=== PATIENT | female | born 1975 | race Caucasian/White ===

== ENCOUNTER 2017-02-10 14:26 | Inpatient (IN) ==
[2017-02-10] MEDS ORDERED: Ipratropium/Albuterol Neb 3 ML IH ONE (14:29)
[2017-02-10] MEDS ORDERED: methylPREDNISolone 125 MG/2 ML VIAL IVP ONE (14:29)
--- NOTE | 2017-02-10 14:32 | Emergency Department Note ---
Disposition Clinical Impression: Acute exacerbation of chronic obstructive airways disease Disposition: Admitted As Inpatient Condition: Fair Referrals: Julia Atkins BOOK REPAIRER [Primary Care Provider] - Forms: ED Satisfaction Letter Time of Disposition: 16:02 SOB HPI - General Chief Complaint: ED Shortness of Breath/Dyspnea Stated Complaint: freida Time Seen by Provider: 02/10/17 14:28 Source: patient Mode of arrival: ambulatory Limitations: no limitations Nursing Notes Reviewed: Yes Vital Signs Reviewed: Yes - History of Present Illness Order 1-year-old with a history COPD comes in with exacerbation of her COPD. Says she hasn't been doing well for the last 2 months and stated that her breathing is gotten worse over the last several days. Squad picked her up at home and transported her her power of tax attorney is on her way in. Pt Subjective Complaint: shortness of breath, cough Onset (ago): Just [employer] Context: recent illness Severity: moderate Consistency/Duration: constant Improves with: nothing Worsens with: exertion Known history of: COPD Associated symptoms: Reports: cough Treatment prior to arrival: none Cough Description: Involuntary Cough Frequency: Intermittent - Related Data Home Medications Medication Instructions Recorded Confirmed Amitriptyline [Elavil] 25 mg PO HS 02/10/17 02/10/17 Aspirin 81 mg PO DAILY 02/10/17 02/10/17 Citalopram Hydrobromide 10 mg PO DAILY 02/10/17 02/10/17 [Citalopram HBr] Fluticasone Propionate Nasal 50 mcg NS DAILY 02/10/17 02/10/17 [Flonase] Meloxicam [Mobic] 7.5 mg PO DAILY 02/10/17 02/10/17 Metoprolol [Lopressor] 50 mg PO DAILY 02/10/17 02/10/17 Quetiapine Fumarate [SEROquel] 100 mg PO HS 02/10/17 02/10/17 Simvastatin [Zocor] 40 mg PO HS 02/10/17 02/10/17 Terbutaline [Brethine] 2.5 mg PO DAILY 02/10/17 02/10/17 Tiotropium [place] [Spiriva 2 puff IH DAILY 02/10/17 02/10/17 Respimat] cloNIDine HCl [Clonidine HCl] 0.3 mg PO DAILY 02/10/17 02/10/17 clonazePAM [Klonopin] 1 mg PO DAILY 02/10/17 02/10/17 Allergies Allergy/AdvReac Type Severity Reaction Status Date / Time No Known Allergies Allergy Verified 06/01/16 17:24 All systems ED: reviewed and negative except as stated. Constitutional: Denies: fever, chills, weakness, weight change Eyes: Denies: eye pain, eye discharge, vision change ENT ED: Denies: ear pain, throat pain, dental pain, hearing loss, epistaxis, congestion, dysphagia Cardiovascular: Denies: chest pain, palpitations, dyspnea on exertion, edema, syncope Respiratory: Reports: cough, dyspnea, wheezes. Denies: hemoptysis, stridor Gastrointestinal: Denies: abdominal pain, nausea, vomiting, diarrhea, constipation, hematemesis, melena, hematochezia Genitourinary: Denies: dysuria, frequency, hematuria, discharge Musculoskeletal: Denies: back pain, neck pain, arthralgia, myalgia Integumentary: Denies: rash, abrasion, lesions Neurological: Denies: headache, weakness, numbness, paresthesias, confusion, abnormal gait, vertigo Psychiatric: Denies: anxiety, depression, suicidal thoughts, homicidal thoughts , auditory hallucinations, visual hallucinations Endocrine: Denies: fatigue Hematological/Lymphatic: Denies: easy bleeding, easy bruising Allergic/Immunologic: Denies: facial swelling, urticaria Past Medical History - Past Medical History Medical history: Reports: asthma, COPD, hypertension, other Psychiatric history: Reports: anxiety - Social History Smoking Status: Current every day smoker Smokeless Tobacco Status: No Alcohol use: Reports: none Drug use: Reports: none Physical Exam - General Limitations: no limitations General appearance: alert, in no apparent distress - Head Head exam: atraumatic, normocephalic, normal inspection - Eye Eye exam: Present: normal appearance, PERRL, EOMI - ENT ENT exam: normal exam, normal oropharynx, mucous membranes moist - Neck Neck exam: Present: normal inspection, full ROM, trachea midline - Chest Chest inspection: Present: normal inspection, symmetric chest wall rise - Respiratory Respiratory exam: Present: wheezes, accessory muscle use, prolonged expiratory phase - Cardiovascular Cardiovascular exam: Present: regular rate, normal rhythm, normal heart sounds - Abdominal Exam Abdominal exam: Present: soft, Non-Tender. Absent: tenderness, distention, guarding, rebound, rigidity - Extremities Exam Extremities exam: Present: normal inspection, full ROM. Absent: tenderness, pedal edema - Expanded Lower Extremity Exam Neurovascular/Tendon exam: Absent: motor deficit, sensory deficit, tendon deficit Gait: observed and normal - Back Exam Back exam: Present: normal inspection - Neurological Exam Neurological exam: Present: alert, oriented X3 - Psychiatric Psychiatric exam: Present: normal affect, normal mood - Skin Skin exam: Present: warm, dry, intact, normal color Course - Reevaluation(s) Reevaluation #1: 41-year-old history COPD comes in with increasing shortness of breath and wheezing. Chest x-ray shows findings consistent with chronic interstitial lung changes. Possibility of vascular congestion although the BNP is negative. Time: 16:02 - Consultations Consultation #1: Discussed with , sunny. Time: 16:37 Vital Signs Temperature 99.7 F H 02/10/17 14:28 Pulse Rate 112 02/10/17 14:28 Respiratory Rate 20 02/10/17 14:28 Blood Pressure 107/84 02/10/17 14:28 O2 Sat by Pulse Oximetry 92 02/10/17 14:28 Temperature 99.7 F H 02/10/17 14:28 Pulse Rate 112 02/10/17 14:28 Respiratory Rate 22 02/10/17 14:38 Blood Pressure 107/84 02/10/17 14:28 O2 Sat by Pulse Oximetry 94 02/10/17 14:38 Oxygen Delivery Oxygen Delivery Nasal Cannula Shortness of Breath/Dyspnea - Lab Data Lab results reviewed: Yes I reviewed the patient's lab results. Result diagrams: 02/10/17 14:48 02/10/17 14:48 Lab Results 02/10/17 02/10/17 02/10/17 Range/Units 14:48 14:48 14:48 WBC 13.4 H (4.3-11.1) K/mcL RBC 4.42 (3.82-4.97) M/mcL Hgb 13.3 (11.5-15.4) g/dL Hct 42.0 (35.3-44.9) % MCV 95.0 (83.0-100.0) fL MCH 30.1 (28.0-33.3) pg MCHC 31.7 (31.6-35.5) g/dL RDW 13.1 (11.5-14.5) % Plt Count 156 (140-400) K/mcL MPV 12.0 (9.4-12.4) fL Immature Gran % 0.4 (0-4) % Seg Neutrophils % 80.6 % Lymphocytes % 11.5 % Monocytes % 5.4 % Eosinophils % 1.8 % Basophils % 0.3 % Neutrophils # 10.8 H (1.6-8.9) K/mcL Lymphocytes # 1.5 (0.6-4.6) K/mcL Monocytes # 0.7 (0.0-1.3) K/mcL Eosinophils # 0.2 (0.0-0.6) K/mcL Basophils # 0.0 (0.0-0.2) K/mcL Sodium 140 (136-145) mEq/L Potassium 3.7 (3.5-5.1) mEq/L Chloride 107 (98-107) mEq/L Carbon Dioxide 28 (23-29) mEq/L BUN 15 (6-20) mg/dL Creatinine 1.00 (0.60-1.20) mg/dL Est GFR ( Amer) > 60 (> 60) Est GFR (Non-Af Amer) > 60 (> 60) BUN/Creatinine Ratio 15 (6-26) Glucose 91 (70-105) mg/dL Calculated Osmolality 290 (280-300) Lactic Acid 0.9 (0.5-2.2) mmol/L Calcium 9.1 (8.6-10.3) mg/dL Troponin I (< 0.04) ng/mL B-Natriuretic Peptide (Less than 100) pg/mL Urine Color (Yellow) Urine Clarity (Clear) Urine pH (5.0-8.0) pH Units Ur Specific [place] (1.010-1.025) Urine Protein (Neg-Trace) mg/dL Urine Glucose (UA) (Normal) mg/dL Urine Ketones (Negative) mg/dL Urine Blood (Negative) Urine Nitrite (Negative) Urine Bilirubin (Negative) Urine Urobilinogen (Normal) mg/dL Ur Leukocyte Esterase (Negative) Urine Microscopic RBC (0-3) per hpf Urine Microscopic WBC (0-3) per hpf Ur Squamous Epith Cells (None-Few) per lpf Urine Bacteria (None-Few) per hpf Hyaline Casts (None-Few) per lpf Ur Culture Indicated? (NO) 02/10/17 02/10/17 02/10/17 Range/Units 14:48 14:48 15:00 WBC (4.3-11.1) K/mcL RBC (3.82-4.97) M/mcL Hgb (11.5-15.4) g/dL Hct (35.3-44.9) % MCV (83.0-100.0) fL MCH (28.0-33.3) pg MCHC (31.6-35.5) g/dL RDW (11.5-14.5) % Plt Count (140-400) K/mcL MPV (9.4-12.4) fL Immature Gran % (0-4) % Seg Neutrophils % % Lymphocytes % % Monocytes % % Eosinophils % % Basophils % % Neutrophils # (1.6-8.9) K/mcL Lymphocytes # (0.6-4.6) K/mcL Monocytes # (0.0-1.3) K/mcL Eosinophils # (0.0-0.6) K/mcL Basophils # (0.0-0.2) K/mcL Sodium (136-145) mEq/L Potassium (3.5-5.1) mEq/L Chloride (98-107) mEq/L Carbon Dioxide (23-29) mEq/L BUN (6-20) mg/dL Creatinine (0.60-1.20) mg/dL Est GFR ( Amer) (> 60) Est GFR (Non-Af Amer) (> 60) BUN/Creatinine Ratio (6-26) Glucose (70-105) mg/dL Calculated Osmolality (280-300) Lactic Acid (0.5-2.2) mmol/L Calcium (8.6-10.3) mg/dL Troponin I < 0.03 (< 0.04) ng/mL B-Natriuretic Peptide 79 (Less than 100) pg/mL Urine Color Dark Yellow (Yellow) Urine Clarity Cloudy A (Clear) Urine pH 5.5 (5.0-8.0) pH Units Ur Specific [place] > 1.030 H (1.010-1.025) Urine Protein 30 H (Neg-Trace) mg/dL Urine Glucose (UA) Normal (Normal) mg/dL Urine Ketones Negative (Negative) mg/dL Urine Blood Negative (Negative) Urine Nitrite Negative (Negative) Urine Bilirubin Small H (Negative) Urine Urobilinogen Normal (Normal) mg/dL Ur Leukocyte Esterase Negative (Negative) Urine Microscopic RBC 0-3 (0-3) per hpf Urine Microscopic WBC 3-5 H (0-3) per hpf Ur Squamous Epith Cells Many H (None-Few) per lpf Urine Bacteria Few (None-Few) per hpf Hyaline Casts None Seen (None-Few) per lpf Ur Culture Indicated? NO (NO) - Radiology Data Radiology results reviewed: Yes I reviewed the patient's radiology results. Chest X-Ray 02/10/17 14:29 IMPRESSION: Vascular congestion versus chronic interstitial lung changes. D/ / 02/10/2017 14:52:13 Daquan Archibald MD / [facility] Interpreting Provider: Daquan Archibald MD - EKG Data EKG attestation: Yes I reviewed and interpreted this EKG. EKG shows normal: Reports: sinus rhythm Rate: Reports: normal Rhythm: Reports: NSR Interpretation: Reports: nonspecific ST-T wave changes
[2017-02-10 14:55] LABS: Basophils % 0.3 %; Eosinophils # 0.2 K/mcL (0.0-0.6); Eosinophils % 1.8 %; Hemoglobin 13.3 g/dL (11.5-15.4); Immature Granulocytes % 0.4 % (0-4); Lymphocytes # 1.5 K/mcL (0.6-4.6); Lymphocytes % 11.5 %; Mean Corpuscular HGB Conc 31.7 g/dL (31.6-35.5); Mean Corpuscular Hemoglobin 30.1 pg (28.0-33.3); Monocytes # 0.7 K/mcL (0.0-1.3); Monocytes % 5.4 %; Neutrophils # 10.8 K/mcL (1.6-8.9); Platelet Count 156 K/mcL (140-400); Red Blood Count 4.42 M/mcL (3.82-4.97); Red Cell Distribution Width 13.1 % (11.5-14.5); Segmented Neutrophils % 80.6 %
[2017-02-10 15:11] LABS: BUN/Creatinine Ratio 15 (6-26); Blood Urea Nitrogen 15 mg/dL (6-20); Calcium 9.1 mg/dL (8.6-10.3); Carbon Dioxide 28 mEq/L (23-29); Chloride 107 mEq/L (98-107); Glucose 91 mg/dL (70-105); Osmolality,Calculated 290 (280-300); Potassium 3.7 mEq/L (3.5-5.1); Sodium 140 mEq/L (136-145); eGFR For African Americans > 60 (> 60); eGFR For Non-African Americans > 60 (> 60)
[2017-02-10 15:14] LABS: Bilirubin,Urine Small (Negative); Blood,Urine Negative (Negative); Clarity,Urine Cloudy (Clear); Color,Urine Dark Yellow (Yellow); Glucose,Urine (UA) Normal (Normal); Ketones,Urine Negative (Negative); Leukocyte Esterase,Urine Negative (Negative); Nitrite,Urine Negative (Negative); PH,Urine 5.5 pH Units (5.0-8.0); Protein,Urine 30 mg/dL (Neg-Trace); Specific Gravity,Urine > 1.030 (1.010-1.025); Urobilinogen,Urine Normal (Normal)
[2017-02-10 15:17] LABS: Bacteria,Urine Few per hpf (None-Few); Hyaline Casts,Urine None Seen per lpf (None-Few); Squamous Epithelial Cell,Urine Many per lpf (None-Few)
[2017-02-10 15:32] LABS: RBC,Urine 0-3 per hpf (0-3)
[2017-02-10] MEDS ORDERED: *HR* Promethazine 25 MG/ML VIAL IVP PRN (17:38)
[2017-02-10] MEDS ORDERED: *HR* Morphine 2 MG/ML SYRINGE IVP PRN (17:38)
[2017-02-10] MEDS ORDERED: Ondansetron 4 MG/2 ML VIAL IVP PRN (17:38)
[2017-02-10] MEDS ORDERED: Naloxone 0.4 MG/ML INJ IVP PRN (17:38)
--- NOTE | 2017-02-10 17:46 | Internal Med History&Physical ---
Date of Encounter: 02/10/17 Time of Encounter: 17:44 Assessment and Plan (1) Acute respiratory failure with hypoxia Current visit: Yes Status: Acute Will admit the pt into Med Surg She is high risk for resp failure with her hypoxia and severe COPD exacerbation.. need to stay in the hospiutal more than 2 night her current COPD exacerbation must be triggered by bronchitis + Smoking started on empirical abx Levaquin will check Resp viral panel Duoneb Q 4hr CULLEN Cont O2.. may need home O2 eval started her on high dose IV systemic steroids Mucinex 600mg BID reviewed CXR by myself - no consolidation / infiltrates Reviewed EKG by myself.. showed sinus tachycardia.. no acute ischemic changes (2) Acute bronchitis Current visit: Yes Status: Acute mostly bacterial on abx Levaquin Qualifiers: Qualified Code(s): J20.9 - Acute bronchitis, unspecified (3) Acute exacerbation of chronic obstructive airways disease Current visit: Yes Status: Acute (4) Tobacco dependence Current visit: Yes Status: Acute counseled to quit placed her on nicotine patch (5) Benign essential HTN Current visit: Yes Status: Acute resumed home meds (6) Morbid obesity with BMI of 50.0-59.9, adult Current visit: Yes Status: Acute counseled to loose weight (7) Anxiety Current visit: Yes Status: Acute resumed home meds Internal Medicine - H&P: HPI Chief complaint: Shortness of breath Admitted From: Emergency Dept Plans for Post Hospital Care: Home History of present illness: Ms. Chatman is a 41 year old female with known heavy tobacco smoker, morbid obesity, COPD, HTN pt who presented to ER with progressively worsening SOB from one week. She also has cough with greenish expectoration. Denied any CP. Denied any GI / symptoms. From last 2 days she is really severe SOB and dyspenic with audible wheezing. When I examined her she is alert, awake and O x 3, in mild resp distress, however she is able to finish full sentence with out any pause. Currently she is on 2 lit o2. Past Med Surg Social Fam HX - Past Medical History Medical history: asthma, COPD, hypertension, other Psychiatric history: anxiety - Social History Smoking Status: Current every day smoker (smokes 3 PPD) Smokeless Tobacco Status: No Alcohol use: none Drug use: none - Additional Family History Additional family history: Reviewed and non contribuitory to current problem Internal Medicine - H&P: Meds Amitriptyline [Elavil] 25 mg PO HS 02/10/17 [History] Aspirin 81 mg PO DAILY 02/10/17 [History] Citalopram Hydrobromide [Citalopram HBr] 10 mg PO DAILY 02/10/17 [History] Fluticasone Propionate Nasal [Flonase] 50 mcg NS DAILY 02/10/17 [History] Meloxicam [Mobic] 7.5 mg PO DAILY 02/10/17 [History] Metoprolol [Lopressor] 50 mg PO DAILY 02/10/17 [History] Quetiapine Fumarate [SEROquel] 100 mg PO HS 02/10/17 [History] Simvastatin [Zocor] 40 mg PO HS 02/10/17 [History] Terbutaline [Brethine] 2.5 mg PO DAILY 02/10/17 [History] Tiotropium [place] [Spiriva Respimat] 2 puff IH DAILY 02/10/17 [History] cloNIDine HCl [Clonidine HCl] 0.3 mg PO DAILY 02/10/17 [History] clonazePAM [Klonopin] 1 mg PO DAILY 02/10/17 [History] 3 Allergy/AdvReac Type Severity Reaction Status Date / Time No Known Allergies Allergy Verified 06/01/16 17:24 All Systems PM: A 10-system review of systems was performed and is negative for pertinent findings except as documented above in the HPI. Review of systems: Reviewed all the systems, everything is benign except the systems and symptoms I mentioned in HPI - Constitutional Vitals: Temp Pulse Resp BP Pulse Ox 99.7 F H 112 18 124/111 94 02/10/17 14:28 02/10/17 14:28 02/10/17 17:23 02/10/17 17:23 02/10/17 14:38 General appearance: Present: mild distress, A&O X 3, answers questions appropriately - Head Head exam: Present: atraumatic, normal inspection - Neck Neck exam general surgery: Present: supple - Respiratory Respiratory exam: Present: decreased breath sounds, respiratory distress (mild) , wheezes (diffuse , severe wheezing). Absent: rales, rhonchi - Cardiovascular Cardiovascular exam: Present: RRR, +S1, +S2. Absent: diastolic murmur, gallop, rubs, systolic murmur - GI/Abdominal GI/Abdominal exam: Present: distended, normal bowel sounds, soft. Absent: rebound, rigid, tenderness - Extremities Exam Extremities exam: Absent: calf tenderness, pedal edema, tenderness - Back Exam Back exam: Absent: CVA tenderness (L), CVA tenderness (R) - Neurological Exam Neurological exam: Present: alert, oriented X3 - Psychiatric Psychiatric exam: Present: normal affect, normal mood - Skin Skin exam: Absent: rash Internal Med - H&P Results - Labs CBC & Chem 7: 02/10/17 14:48 02/10/17 14:48
[2017-02-10] MEDS: Nicotine 21 MG PATCH.TD24 TD SCH (18:52)
[2017-02-10] MEDS: *HR* HYDROcodone/Acet 5/325 mg TABLET PO PRN ×2 (18:52→23:50)
[2017-02-10] MEDS: Levofloxacin 750 MG/150 ML 750 MG/150 ML BAG IVPB SCH (18:54)
[2017-02-10] MEDS: Ipratropium/Albuterol Neb 3 ML IH SCH (20:50)
[2017-02-10] MEDS ORDERED: cloNIDine HCl 0.1 MG TABLET PO ONE (21:29)
[2017-02-10] MEDS: Acetaminophen 325 MG TABLET PO PRN (22:19)
[2017-02-10] MEDS: MethylPREDNISolone 40 MG/ML VIAL IVP SCH (22:19)
[2017-02-11] MEDS: Ipratropium/Albuterol Neb 3 ML IH SCH ×7 (00:17→23:05)
[2017-02-11] MEDS: MethylPREDNISolone 40 MG/ML VIAL IVP SCH ×4 (03:16→20:22)
[2017-02-11 04:13] LABS: Basophils % 0.2 %; Hemoglobin 12.8 g/dL (11.5-15.4); Immature Granulocytes % 0.7 % (0-4); Lymphocytes # 0.7 K/mcL (0.6-4.6); Lymphocytes % 5.9 %; Mean Corpuscular Hemoglobin 30.4 pg (28.0-33.3); Mean Platelet Volume 12.5 fL (9.4-12.4); Monocytes # 0.1 K/mcL (0.0-1.3); Monocytes % 0.7 %; Neutrophils # 11.1 K/mcL (1.6-8.9); Platelet Count 173 K/mcL (140-400); Red Blood Count 4.21 M/mcL (3.82-4.97); Red Cell Distribution Width 13.1 % (11.5-14.5); Segmented Neutrophils % 92.5 %
[2017-02-11 04:28] LABS: Chol/HDL Ratio 4.3 (0-4.9)
[2017-02-11] MEDS: *HR* Enoxaparin 40 MG/0.4 ML SYRINGE SQ SCH (04:53)
--- NOTE | 2017-02-11 06:17 | Electrocardiograph Report ---
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
[2017-02-11] MEDS ORDERED: cloNIDine HCl 0.1 MG TABLET PO SCH (09:00)
[2017-02-11] MEDS: Aspirin 81 MG TAB.CHEW PO SCH (09:14)
[2017-02-11] MEDS: clonazePAM 1 MG TABLET PO SCH (09:14)
[2017-02-11] MEDS: Acetaminophen 325 MG TABLET PO PRN ×2 (09:22→20:20)
[2017-02-11] MEDS: Fluticasone Propionate Nasal 50 MCG/SPRAY BOTTLE NS SCH (10:08)
[2017-02-11 15:57] LABS: Adenovirus Not Detected (Not Detect); Coronavirus 229E Not Detected (Not Detect)
[2017-02-11 15:58] LABS: Bordetella Pertussis Not Detected (Not Detect); Chlamydophila pneumoniae Not Detected (Not Detect); Coronavirus HKU1 Not Detected (Not Detect); Coronavirus NL63 Not Detected (Not Detect); Coronavirus OC43 Not Detected (Not Detect); Human Metapneumovirus Not Detected (Not Detect); Human Rhinovirus/Enterovirus Not Detected (Not Detect); Influenza A Subtype 2009 H1 Not Detected (Not Detect); Influenza A Untypeable Not Detected (Not Detect); Influenza B Not Detected (Not Detect); Mycoplasma pneumoniae Not Detected (Not Detect); Parainfluenza Virus 1 Not Detected (Not Detect); Parainfluenza Virus 2 Not Detected (Not Detect); Parainfluenza Virus 3 Not Detected (Not Detect); Parainfluenza Virus 4 Not Detected (Not Detect); Respiratory Syncytial Virus Not Detected (Not Detect)
[2017-02-11] MEDS: Levofloxacin 750 MG/150 ML 750 MG/150 ML BAG IVPB SCH (16:48)
[2017-02-11] MEDS: Nicotine 21 MG PATCH.TD24 TD SCH (16:48)
--- NOTE | 2017-02-11 17:06 | Internal Med Progress Note ---
Date of Encounter: 02/11/17 Time of Encounter: 17:04 - Assessment and plan (1) Acute respiratory failure with hypoxia Current Visit: Yes Status: Acute Assessment and plan: Reviewed Resp viral panel - Negative Cont Duoneb Q 4hr CULLEN Cont O2.. may need home O2 eval in AM Started tapering IV systemic steroids Cont Mucinex 600mg BID Also encouraged to use more frequent Incentive spirometry (2) Acute bronchitis Current Visit: Yes Status: Acute Assessment and plan: mostly bacterial cont empirical abx Levaquin Qualifiers: Qualified Code(s): J20.9 - Acute bronchitis, unspecified (3) Acute exacerbation of chronic obstructive airways disease Current Visit: Yes Status: Acute Assessment and plan: see above (4) Tobacco dependence Current Visit: Yes Status: Acute Assessment and plan: counseled to quit placed her on nicotine patch (5) Benign essential HTN Current Visit: Yes Status: Acute Assessment and plan: stable with current home meds (6) Morbid obesity with BMI of 50.0-59.9, adult Current Visit: Yes Status: Acute (7) Anxiety Current Visit: Yes Status: Acute Assessment and plan: resumed home meds - Subjective Interval history: Ms. Chatman is a 41 year old female with known heavy tobacco smoker, morbid obesity, COPD, HTN pt who presented to ER with progressively worsening SOB from one week. She also has cough with greenish expectoration. Denied any CP.She was admitted in the hospital for COPD exacerbation and acute bronchitis. She is still c/o SOB and RIDLEY .. currently on 3 lit O2 NC. - Constitutional Vitals: Temp Pulse Resp BP Pulse Ox 97.5 F L 89 19 128/76 90 02/11/17 15:00 02/11/17 15:00 02/11/17 15:52 02/11/17 15:00 02/11/17 15:52 General appearance: Present: A&O X 3, no acute distress, answers questions appropriately - Head Head exam: Present: atraumatic, normal inspection - Neck Neck exam general surgery: Present: supple - Respiratory Respiratory exam: Present: decreased breath sounds, wheezes (moderate). Absent : rales, respiratory distress, rhonchi - Cardiovascular Cardiovascular exam: Present: RRR, +S1, +S2. Absent: tachycardia - GI/Abdominal GI/Abdominal exam: Present: normal bowel sounds, soft. Absent: rebound, rigid, tenderness - Extremities Exam Extremities exam: Absent: calf tenderness, pedal edema, tenderness - Back Exam Back exam: Absent: CVA tenderness (L), CVA tenderness (R) - Neurological Exam Neurological exam: Present: alert, oriented X3 - Psychiatric Psychiatric exam: Present: anxious Internal Medicine: Result - Labs CBC & Chem 7: 02/11/17 03:08 02/10/17 14:48 Labs: Short CBC 02/11/17 Range/Units 03:08 WBC 12.0 H (4.3-11.1) K/mcL Hgb 12.8 (11.5-15.4) g/dL Hct 40.0 (35.3-44.9) % Plt Count 173 (140-400) K/mcL Neutrophils # 11.1 H (1.6-8.9) K/mcL Consult Discharge Plan - Plan Referrals: Julia Atkins, REGISTERED NURSE [employer] [Primary Care Provider] -
[2017-02-11] MEDS ORDERED: cloNIDine HCl 0.1 MG TABLET PO ONE (21:29)
[2017-02-12] MEDS: MethylPREDNISolone 40 MG/ML VIAL IVP SCH ×4 (03:44→22:43)
[2017-02-12] MEDS: Ipratropium/Albuterol Neb 3 ML IH SCH ×6 (04:29→23:30)
[2017-02-12] MEDS: *HR* Enoxaparin 40 MG/0.4 ML SYRINGE SQ SCH (05:38)
[2017-02-12] MEDS: Aspirin 81 MG TAB.CHEW PO SCH (08:05)
[2017-02-12] MEDS: Fluticasone Propionate Nasal 50 MCG/SPRAY BOTTLE NS SCH (08:06)
[2017-02-12] MEDS: clonazePAM 1 MG TABLET PO SCH (08:06)
--- NOTE | 2017-02-12 11:16 | Internal Med Progress Note ---
Date of Encounter: 02/12/17 Time of Encounter: 11:13 - Assessment and plan (1) Acute respiratory failure with hypoxia Current Visit: Yes Status: Acute Assessment and plan: Cont Duoneb Q 4hr CULLEN Reviewed Resp viral panel - Negative Try to wean her off the O2 as she tolerates.. Need home O2 eval..talked to Nursing staff Started tapering IV systemic steroids Cont Mucinex 600mg BID Also encouraged to use more frequent Incentive spirometry Dispo: Possible d/c home in AM, mostly with home O2 (2) Acute bronchitis Current Visit: Yes Status: Acute Assessment and plan: mostly bacterial cont empirical abx Levaquin Qualifiers: Qualified Code(s): J20.9 - Acute bronchitis, unspecified (3) Acute exacerbation of chronic obstructive airways disease Current Visit: Yes Status: Acute Assessment and plan: see above (4) Tobacco dependence Current Visit: Yes Status: Acute Assessment and plan: counseled to quit placed her on nicotine patch (5) Benign essential HTN Current Visit: Yes Status: Acute Assessment and plan: stable with current home meds (6) Morbid obesity with BMI of 50.0-59.9, adult Current Visit: Yes Status: Acute Assessment and plan: counseled to loose weight (7) Anxiety Current Visit: Yes Status: Acute Assessment and plan: resumed home meds - Subjective Interval history: Ms. Chatman is a 41 year old female with known heavy tobacco smoker, morbid obesity, COPD, HTN pt who presented to ER with progressively worsening SOB from one week. She also has cough with greenish expectoration. Denied any CP.She was admitted in the hospital for COPD exacerbation and acute bronchitis. She is still c/o SOB and RIDLEY .. currently on 2.5 lit O2 NC. No events over night - Constitutional Vitals: Temp Pulse Resp BP Pulse Ox 98.4 F 86 18 127/81 91 02/12/17 11:04 02/12/17 11:04 02/12/17 11:04 02/12/17 11:04 02/12/17 11:04 General appearance: Present: A&O X 3, no acute distress, answers questions appropriately - Head Head exam: Present: atraumatic, normal inspection - Neck Neck exam general surgery: Present: supple - Respiratory Respiratory exam: Present: decreased breath sounds, wheezes (moderate). Absent : rales, respiratory distress, rhonchi - Cardiovascular Cardiovascular exam: Present: RRR, +S1, +S2. Absent: tachycardia - GI/Abdominal GI/Abdominal exam: Present: distended, normal bowel sounds, soft. Absent: rebound, rigid, tenderness - Extremities Exam Extremities exam: Absent: calf tenderness, pedal edema, tenderness - Back Exam Back exam: Absent: CVA tenderness (L), CVA tenderness (R) - Psychiatric Psychiatric exam: Present: anxious Internal Medicine: Result - Labs CBC & Chem 7: 02/11/17 03:08 02/10/17 14:48 Consult Discharge Plan - Plan Referrals: Julia Atkins SUPERVISOR [employer] [Primary Care Provider] - 02/24/17 9:00 am
[2017-02-12] MEDS: Levofloxacin 750 MG/150 ML 750 MG/150 ML BAG IVPB SCH (18:11)
[2017-02-12] MEDS: Nicotine 21 MG PATCH.TD24 TD SCH (18:12)
[2017-02-13] MEDS: Acetaminophen 325 MG TABLET PO PRN (00:14)
[2017-02-13] MEDS: Ipratropium/Albuterol Neb 3 ML IH SCH ×4 (03:43→15:25)
[2017-02-13] MEDS: *HR* Enoxaparin 40 MG/0.4 ML SYRINGE SQ SCH (05:38)
[2017-02-13] MEDS: clonazePAM 1 MG TABLET PO SCH (08:20)
[2017-02-13] MEDS: Aspirin 81 MG TAB.CHEW PO SCH (08:20)
[2017-02-13] MEDS: Fluticasone Propionate Nasal 50 MCG/SPRAY BOTTLE NS SCH (08:20)
[2017-02-13 11:23] VITALS: BP 160/94
[2017-02-13] MEDS: MethylPREDNISolone 40 MG/ML VIAL IVP SCH (11:23)
--- NOTE | 2017-02-13 14:45 | Discharge Summary ---
Date of Encounter: 02/13/17 Time of Encounter: 14:44 - Discharge Diagnosis (1) Acute respiratory failure with hypoxia Priority: Primary Status: Acute (2) Acute bronchitis Priority: Primary Status: Acute Qualifiers: Qualified Code(s): J20.9 - Acute bronchitis, unspecified (3) Acute exacerbation of chronic obstructive airways disease Priority: Primary Status: Acute (4) Tobacco dependence Priority: Secondary Status: Acute (5) Benign essential HTN Priority: Secondary Status: Acute (6) Morbid obesity with BMI of 50.0-59.9, adult Priority: Secondary Status: Acute (7) Anxiety Priority: Secondary Status: Acute - Discharge Medications Prescriptions: Albuterol Sulfate [Albuterol Inhaler] 2 puff IH Q6HR PRN #1 hfa.aer.ad PRN Reason: Shortness Of Breath GuaiFENesin ER [Mucinex] 600 mg PO BID #15 tbbp.12hr Levofloxacin [Levaquin] 500 mg PO DAILY #3 tablet Nicotine Patch [Nicoderm] 21 mg TD Q24H #30 patch.td24 predniSONE [PredniSONE] 40 mg PO DAILY #10 tablet Home Medications: Amitriptyline [Elavil] 25 mg PO HS 02/10/17 [History] Aspirin 81 mg PO DAILY 02/10/17 [History] Citalopram Hydrobromide [Citalopram HBr] 10 mg PO DAILY 02/10/17 [History] Fluticasone Propionate Nasal [Flonase] 50 mcg NS DAILY 02/10/17 [History] Metoprolol [Lopressor] 50 mg PO DAILY 02/10/17 [History] Quetiapine Fumarate [Seroquel] 100 mg PO HS 02/10/17 [History] Simvastatin [Zocor] 40 mg PO HS 02/10/17 [History] Terbutaline [Brethine] 2.5 mg PO DAILY 02/10/17 [History] Tiotropium [place] [Spiriva Respimat] 2 puff IH DAILY 02/10/17 [History] cloNIDine HCl [Clonidine HCl] 0.3 mg PO DAILY 02/10/17 [History] clonazePAM [Klonopin] 1 mg PO DAILY 02/10/17 [History] Albuterol Sulfate [Albuterol Inhaler] 2 puff IH Q6HR PRN #1 hfa.aer.ad 02/13/17 [Rx] GuaiFENesin ER [Mucinex] 600 mg PO BID #15 tbbp.12hr 02/13/17 [Rx] Levofloxacin [Levaquin] 500 mg PO DAILY #3 tablet 02/13/17 [Rx] Nicotine Patch [Nicoderm] 21 mg TD Q24H #30 patch.td24 02/13/17 [Rx] predniSONE [PredniSONE] 40 mg PO DAILY #10 tablet 02/13/17 [Rx] Allergies/Adverse Reactions: 3 Allergy/AdvReac Type Severity Reaction Status Date / Time No Known Allergies Allergy Verified 06/01/16 17:24 Date of admission: 02/10/17 17:38 Primary care physician: Julia Atkins CNP - Patient Status Disposition: Home, Self-Care Condition: Good Overall status at discharge: patient is back to baseline - Discharge Instructions Follow Up With: Julia Atkins CNP [Primary Care Provider] - 02/24/17 9:00 am - Diet and Activity Activity: increase activity as tolerated, wear oxygen at night (2 lit at night and with ambulation) Diet: low salt diet Hospital course: Ms. Chatman is a 41 year old female with known heavy tobacco smoker, morbid obesity, COPD, HTN pt who presented to ER with progressively worsening SOB from one week. She also has cough with greenish expectoration. Denied any CP.She was admitted in the hospital for COPD exacerbation and acute bronchitis. Pt was placed on high dose IV steroids, and empirical abx Levaquin. Her symptoms started improving slowly. Noticed she does smoke 3 PPD, so counseled and educated the pt to quit smoking and placed her on Nicotine patch. She is currently breathing comfortably on RA all day today with Spo2 @ 93, however we did 6 minute walking test and her Spo2 dropped down to 84 on RA, improved to 94 on 2 lit, so will arrange for home O2 at 2 lit with ambulation. She does need convertible and portable tank since she is pretty ambulating and functional. - Time Spent with Patient Total time spent providing and/or coordinating discharge services: - Constitutional Vitals: Temp Pulse Resp BP Pulse Ox 98.4 F 85 18 160/94 93 02/13/17 11:20 02/13/17 11:20 02/13/17 11:34 02/13/17 11:20 02/13/17 11:34 General appearance: Present: A&O X 3, no acute distress, answers questions appropriately - Head Head exam: Present: atraumatic, normal inspection - Neck Neck exam general surgery: Present: supple - Respiratory Respiratory exam: Present: decreased breath sounds, wheezes (mild). Absent: respiratory distress, rhonchi - Cardiovascular Cardiovascular exam: Present: RRR, +S1, +S2. Absent: tachycardia - Extremities Exam Extremities exam: Absent: calf tenderness, pedal edema, tenderness - Back Exam Back exam: Absent: CVA tenderness (L), CVA tenderness (R) - Neurological Exam Neurological exam: Present: alert, oriented X3 - Psychiatric Psychiatric exam: Present: normal affect, normal mood
== END 2017-02-13 15:56 | disposition home or self-care (01) | DRG 140 ==
LOC: 3BNU 14:26 → EMEROO 14:26 → 3BNU 17:26
PROVIDERS: ADMIT Internal Medicine Nephrology; ATTEND Registered Nurse

== ENCOUNTER 2017-03-02 09:47 | Inpatient (IN) ==
[2017-03-02] MEDS ORDERED: methylPREDNISolone 125 MG/2 ML VIAL IVP ONE (10:11)
[2017-03-02] MEDS ORDERED: Ipratropium/Albuterol Neb 3 ML IH ONE (10:11)
[2017-03-02 10:22] LABS: Basophils % 0.3 %; Eosinophils # 0.2 K/mcL (0.0-0.6); Eosinophils % 3.8 %; Hematocrit 38.9 % (35.3-44.9); Hemoglobin 11.9 g/dL (11.5-15.4); Immature Granulocytes % 0.3 % (0-4); Lymphocytes # 1.4 K/mcL (0.6-4.6); Lymphocytes % 22.7 %; Mean Corpuscular HGB Conc 30.6 g/dL (31.6-35.5); Mean Corpuscular Hemoglobin 29.7 pg (28.0-33.3); Mean Platelet Volume 11.6 fL (9.4-12.4); Monocytes # 0.4 K/mcL (0.0-1.3); Monocytes % 6.5 %; Neutrophils # 4.2 K/mcL (1.6-8.9); Platelet Count 175 K/mcL (140-400); Red Blood Count 4.01 M/mcL (3.82-4.97); Red Cell Distribution Width 14.5 % (11.5-14.5); Segmented Neutrophils % 66.4 %
--- NOTE | 2017-03-02 10:24 | Emergency Department Note ---
Disposition Clinical Impression: Acute bronchitis, COPD exacerbation, Hypoxia Disposition: Admitted As Inpatient Condition: Fair Referrals: Julia Atkins, STUDENT OFFICER [Primary Care Provider] - Forms: ED Satisfaction Letter Time of Disposition: 13:40 SOB HPI - General Chief Complaint: ED Shortness of Breath/Dyspnea Stated Complaint: CRISELDA Time Seen by Provider: 03/02/17 09:52 Source: patient, EMS Limitations: no limitations Nursing Notes Reviewed: Yes Vital Signs Reviewed: Yes - History of Present Illness Mrs. Chatman presents to the ED for evaluation of Hypoxia and worsening dyspnea. Patient arrived by EMS. Patient does not have Power of [employer]. Patient's POA is on the way. Patient was discharged from hospital recently for exacerbation of COPD. Patient reports worsening dyspnea since that time. Currently on 2L oxygen at home. On presentation to the ED she was at 88% after 1 breathing treatment in the squad with no improvement. Patient reports recently fighting the flu. Denies chest pain, abdominal pain, nausea, vomitting, diarrhea. Patient reports occasional nocturnal dyspnea relieved throughout the day. Patient reports some wheezing and occasional cough with minimal sputum production. No hemoptysis. No Palpitations. Former smoker, quit 2 months ago. Patient has increased bilateral leg swelling, chronic in nature. No warmth or erythema evident. Pt Subjective Complaint: shortness of breath, cough Onset (ago): week(s) Context: recent illness Severity: moderate Consistency/Duration: constant, gradually worsening Improves with: oxygen, rest Worsens with: lying flat, exertion Known history of: COPD, diabetes Associated symptoms: Reports: denies other symptoms. Denies: fever, polyuria, abdominal pain Treatment prior to arrival: oxygen, bronchodilator Cough present: Yes Cough Description: Non-Productive, Dry Cough Frequency: Intermittent Sputum production: No Sputum Amount: None - Related Data Home oxygen amount: 2 liters Home Medications Medication Instructions Recorded Confirmed Amitriptyline [Elavil] 25 mg PO HS 02/10/17 03/02/17 Aspirin 81 mg PO DAILY 02/10/17 03/02/17 Citalopram Hydrobromide 10 mg PO DAILY 02/10/17 03/02/17 [Citalopram HBr] Fluticasone Propionate Nasal 50 mcg NS DAILY 02/10/17 03/02/17 [Flonase] Metoprolol [Lopressor] 50 mg PO DAILY 02/10/17 03/02/17 Quetiapine Fumarate [Seroquel] 100 mg PO HS 02/10/17 03/02/17 Simvastatin [Zocor] 40 mg PO HS 02/10/17 03/02/17 Terbutaline [Brethine] 2.5 mg PO DAILY 02/10/17 03/02/17 Tiotropium [place] [Spiriva 2 puff IH DAILY 02/10/17 03/02/17 Respimat] cloNIDine HCl [Clonidine HCl] 0.3 mg PO DAILY 02/10/17 03/02/17 clonazePAM [Klonopin] 1 mg PO DAILY 02/10/17 03/02/17 Albuterol Neb [AccuNeb] 1.25 mg IH AD 03/02/17 03/02/17 Meloxicam [Meloxicam] 7.5 mg PO DAILY 03/02/17 03/02/17 Previous Rx's Medication Instructions Recorded Albuterol Sulfate [Albuterol 2 puff IH Q6HR PRN #1 hfa.aer.ad 02/13/17 Inhaler] GuaiFENesin ER [Mucinex] 600 mg PO BID #15 tbbp.12hr 02/13/17 Nicotine Patch [Nicoderm] 21 mg TD Q24H #30 patch.td24 02/13/17 Allergies Allergy/AdvReac Type Severity Reaction Status Date / Time No Known Allergies Allergy Verified 03/02/17 09:54 All systems ED: reviewed and negative except as stated. Constitutional: Reports: as per HPI Cardiovascular: Reports: as per HPI. Denies: palpitations Neurological: Denies: weakness Past Medical History - Past Medical History Attestation: Yes The following information was validated with the patient. Source: patient Medical history: Reports: asthma, COPD, hypertension, other Psychiatric history: Reports: anxiety MANAGER UTILITIES history: Reports: non-contributory - Social History Smoking Status: Former smoker Smokeless Tobacco Status: No Alcohol use: Reports: none Drug use: Reports: none Physical Exam Patient vomited tachypneic. Diffuse expiratory wheezing on lung exam. - General Limitations: no limitations - Head Head exam: atraumatic, normocephalic - Eye Eye exam: Present: normal appearance, PERRL, EOMI - ENT ENT exam: normal exam, normal oropharynx - Neck Neck exam: Present: normal inspection - Chest Chest inspection: Present: normal inspection - Respiratory Respiratory exam: Present: respiratory distress (Mild tachypnea. No accessory muscle use.), wheezes - Cardiovascular Cardiovascular exam: Present: regular rate, normal rhythm, normal heart sounds - Abdominal Exam Abdominal exam: Present: soft, Non-Tender - Neurological Exam Neurological exam: Present: alert, oriented X3 - Psychiatric Psychiatric exam: Present: normal affect - Skin Skin exam: Present: warm, dry Course - Reevaluation(s) Reevaluation #1: Patient hypoxic on her ABG. Some possible pulmonary edema on her chest x-ray. We will trial BiPAP. Time: 11:11 Reevaluation #2: No PE. No pneumonia. She is given Levaquin for the bronchitis. She has received Solu-Medrol. She is admitted to medicine. She is satting 100% on an oxy mask at this time. Time: 13:39 Vital Signs Temperature 98.4 F 03/02/17 09:48 Pulse Rate 97 03/02/17 09:48 Respiratory Rate 20 03/02/17 09:48 Blood Pressure 141/93 03/02/17 09:48 O2 Sat by Pulse Oximetry 90 03/02/17 09:48 Temperature 98.4 F 03/02/17 09:48 Pulse Rate 117 03/02/17 13:17 Respiratory Rate 20 03/02/17 13:17 Blood Pressure 136/101 03/02/17 11:51 O2 Sat by Pulse Oximetry 95 03/02/17 13:17 Oxygen Delivery Oxygen Delivery Non Rebreather Mask Shortness of Breath/Dyspnea - Lab Data Result diagrams: 03/02/17 10:04 03/02/17 10:04 Lab Results 03/02/17 03/02/17 03/02/17 Range/Units 10:04 10:04 10:04 WBC 6.3 (4.3-11.1) K/mcL RBC 4.01 (3.82-4.97) M/mcL Hgb 11.9 (11.5-15.4) g/dL Hct 38.9 (35.3-44.9) % MCV 97.0 (83.0-100.0) fL MCH 29.7 (28.0-33.3) pg MCHC 30.6 L (31.6-35.5) g/dL RDW 14.5 (11.5-14.5) % Plt Count 175 (140-400) K/mcL MPV 11.6 (9.4-12.4) fL Immature Gran % 0.3 (0-4) % Seg Neutrophils % 66.4 % Lymphocytes % 22.7 % Monocytes % 6.5 % Eosinophils % 3.8 % Basophils % 0.3 % Neutrophils # 4.2 (1.6-8.9) K/mcL Lymphocytes # 1.4 (0.6-4.6) K/mcL Monocytes # 0.4 (0.0-1.3) K/mcL Eosinophils # 0.2 (0.0-0.6) K/mcL Basophils # 0.0 (0.0-0.2) K/mcL D-Dimer 587 H (0-500) ng/mLFEU ABG pH (7.32-7.45) pH Units ABG pCO2 (35-45) mmHg ABG pO2 (85-104) mmHg ABG HCO3 (21-27) mEq/L ABG Total CO2 (20-26) mEq/L ABG O2 Saturation (95-98) % ABG Base Excess (-2 to 3) mEq/L Sodium 142 (136-145) mEq/L Potassium 3.4 L (3.5-5.1) mEq/L Chloride 102 (98-107) mEq/L Carbon Dioxide 34 H (23-29) mEq/L BUN 18 (6-20) mg/dL Creatinine 1.00 (0.60-1.20) mg/dL Est GFR ( Amer) > 60 (> 60) Est GFR (Non-Af Amer) > 60 (> 60) BUN/Creatinine Ratio 18 (6-26) Glucose 101 (70-105) mg/dL Calculated Osmolality 296 (280-300) Lactic Acid (0.5-2.2) mmol/L Calcium 8.8 (8.6-10.3) mg/dL Troponin I (< 0.04) ng/mL B-Natriuretic Peptide (Less than 100) pg/mL Person Notif of Crit 03/02/17 03/02/17 03/02/17 Range/Units 10:04 10:04 10:04 WBC (4.3-11.1) K/mcL RBC (3.82-4.97) M/mcL Hgb (11.5-15.4) g/dL Hct (35.3-44.9) % MCV (83.0-100.0) fL MCH (28.0-33.3) pg MCHC (31.6-35.5) g/dL RDW (11.5-14.5) % Plt Count (140-400) K/mcL MPV (9.4-12.4) fL Immature Gran % (0-4) % Seg Neutrophils % % Lymphocytes % % Monocytes % % Eosinophils % % Basophils % % Neutrophils # (1.6-8.9) K/mcL Lymphocytes # (0.6-4.6) K/mcL Monocytes # (0.0-1.3) K/mcL Eosinophils # (0.0-0.6) K/mcL Basophils # (0.0-0.2) K/mcL D-Dimer (0-500) ng/mLFEU ABG pH (7.32-7.45) pH Units ABG pCO2 (35-45) mmHg ABG pO2 (85-104) mmHg ABG HCO3 (21-27) mEq/L ABG Total CO2 (20-26) mEq/L ABG O2 Saturation (95-98) % ABG Base Excess (-2 to 3) mEq/L Sodium (136-145) mEq/L Potassium (3.5-5.1) mEq/L Chloride (98-107) mEq/L Carbon Dioxide (23-29) mEq/L BUN (6-20) mg/dL Creatinine (0.60-1.20) mg/dL Est GFR ( Amer) (> 60) Est GFR (Non-Af Amer) (> 60) BUN/Creatinine Ratio (6-26) Glucose (70-105) mg/dL Calculated Osmolality (280-300) Lactic Acid 1.2 (0.5-2.2) mmol/L Calcium (8.6-10.3) mg/dL Troponin I < 0.03 (< 0.04) ng/mL B-Natriuretic Peptide 18 (Less than 100) pg/mL Person Notif of Crit 03/02/17 Range/Units 10:44 WBC (4.3-11.1) K/mcL RBC (3.82-4.97) M/mcL Hgb (11.5-15.4) g/dL Hct (35.3-44.9) % MCV (83.0-100.0) fL MCH (28.0-33.3) pg MCHC (31.6-35.5) g/dL RDW (11.5-14.5) % Plt Count (140-400) K/mcL MPV (9.4-12.4) fL Immature Gran % (0-4) % Seg Neutrophils % % Lymphocytes % % Monocytes % % Eosinophils % % Basophils % % Neutrophils # (1.6-8.9) K/mcL Lymphocytes # (0.6-4.6) K/mcL Monocytes # (0.0-1.3) K/mcL Eosinophils # (0.0-0.6) K/mcL Basophils # (0.0-0.2) K/mcL D-Dimer (0-500) ng/mLFEU ABG pH 7.47 H (7.32-7.45) pH Units ABG pCO2 42 (35-45) mmHg ABG pO2 48 L* (85-104) mmHg ABG HCO3 31 H (21-27) mEq/L ABG Total CO2 32 H (20-26) mEq/L ABG O2 Saturation 85 L (95-98) % ABG Base Excess 7 H (-2 to 3) mEq/L Sodium (136-145) mEq/L Potassium (3.5-5.1) mEq/L Chloride (98-107) mEq/L Carbon Dioxide (23-29) mEq/L BUN (6-20) mg/dL Creatinine (0.60-1.20) mg/dL Est GFR ( Amer) (> 60) Est GFR (Non-Af Amer) (> 60) BUN/Creatinine Ratio (6-26) Glucose (70-105) mg/dL Calculated Osmolality (280-300) Lactic Acid (0.5-2.2) mmol/L Calcium (8.6-10.3) mg/dL Troponin I (< 0.04) ng/mL B-Natriuretic Peptide (Less than 100) pg/mL Person Notif of [place] Pantoja garza - EKG Data EKG attestation: Yes I reviewed and interpreted this EKG. EKG results narrative: EKG normal sinus rhythm. No ST segment changes. No T-wave inversions. Normal intervals. Normal axis. Unchanged from EKG February 10. Critical Care Time Critical Care Time: Yes Total Critical Care Time: 35 Attestation: Critical care performed: Time is exclusive of separately billable procedures. Time includes: direct patient care, patient reassessment, coordination of patient care, interpretation of data (laboratory data, radiology data, and respiratory data), review of patient's medical records, medical consultation and documentation of patient care. Procedures included in critical care time: Procedures excluded from critical care time: Attestation Statement - Attestation Attestation: Patient
[2017-03-02 10:35] LABS: BUN/Creatinine Ratio 18 (6-26); Blood Urea Nitrogen 18 mg/dL (6-20); Calcium 8.8 mg/dL (8.6-10.3); Carbon Dioxide 34 mEq/L (23-29); Chloride 102 mEq/L (98-107); Glucose 101 mg/dL (70-105); Osmolality,Calculated 296 (280-300); Potassium 3.4 mEq/L (3.5-5.1); Sodium 142 mEq/L (136-145); eGFR For African Americans > 60 (> 60); eGFR For Non-African Americans > 60 (> 60)
[2017-03-02 10:52] LABS: ABG Base Excess 7 mEq/L (-2 to 3); ABG HCO3 31 mEq/L (21-27); ABG Oxygen Saturation 85 % (95-98); ABG PCO2 42 mmHg (35-45); ABG PH 7.47 pH Units (7.32-7.45); ABG PO2 48 mmHg (85-104); ABG TCO2 32 mEq/L (20-26)
[2017-03-02] MEDS ORDERED: *HR* LORazepam 2 MG/ML VIAL IVP ONE (11:34)
[2017-03-02] MEDS ORDERED: Levofloxacin 500 MG/100 ML 500 MG/100 ML BAG IVPB ONE (13:23)
[2017-03-02] MEDS ORDERED: *HR* Morphine 2 MG/ML SYRINGE IVP PRN (14:41)
[2017-03-02] MEDS ORDERED: Naloxone 0.4 MG/ML INJ IVP PRN (14:41)
--- NOTE | 2017-03-02 14:48 | Internal Med History&Physical ---
Date of Encounter: 03/02/17 Time of Encounter: 14:48 Assessment and Plan (1) Acute exacerbation of chronic obstructive airways disease Current visit: No Status: Acute 39/female Admitted with worsening COPD exacerbation. Recently discharged from hospital with a similar symptoms Bilateral wheezing noted. She is using accessory muscles of respiration. Presently on a BiPAP. Plan: Admit as inpatient. Blood cultures drawn in the emergency room. IV levofloxacin 750 mg every 24 hours IV Solu-Medrol 40 mg every 8 hours. Inhaled bronchodilators DuoNeb every 3-4 hours. Close monitoring of respiratory status. (2) Tobacco dependence Current visit: No Status: Acute Patient is still actively smoking and not willing to quit. (3) Benign essential HTN Current visit: No Status: Acute Will resume home medications. (4) Morbid obesity with BMI of 50.0-59.9, adult Current visit: No Status: Acute Patient may benefit from the bariatric surgery as outpatient (5) Anxiety Current visit: No Status: Acute Extensive counseling done. (6) DVT prophylaxis Current visit: Yes Status: Acute Antiembolic stockings Decision-making: This patient has a moderate to severe risk of worsening in spite of being on appropriate medication due to the underlying complex medical conditions. Internal Medicine - H&P: HPI Chief complaint: Shortness of breath Admitted From: Emergency Dept Plans for Post Hospital Care: Home History of present illness: PCP: NICOLA Atkins Brief PMH: COPD,Hypertension, Morbid Obesity HPI: Patient was recently hospitalized for COPD exacerbation around a week ago. She was sent home on antibiotics and steroids. Patient claims that when she was discharged from the hospital at that time she was extremely short of breath. At home patient's shortness of breath gradually got worse and to the extent that she got desaturated and that was the reason she called EMS for further management. EMS evaluated her and at that time her saturation was 88%. EMS decided to bring the patient to the hospital for further evaluation. Patient denies chest pain, dizziness, nausea, vomiting, abdominal pain, diarrhea or dizziness. Workup in the emergency room: Patient was evaluated in the emergency room. Blood gas was suggestive of a respiratory alkalosis with hypoxic respiratory failure. Her d-dimer was elevated and CT did not show any pulmonary embolism. Patient was placed on biPAP. Reason for admission: COPD exacerbation which requires BiPAP. Family history: Noncontributory Past Med Surg Social Fam HX - Past Medical History Medical history: asthma, COPD, hypertension, other Psychiatric history: anxiety - Social History Smoking Status: Former smoker Smokeless Tobacco Status: No Alcohol use: none Drug use: none Internal Medicine - H&P: Meds Amitriptyline [Elavil] 25 mg PO HS 02/10/17 [History] Aspirin 81 mg PO DAILY 02/10/17 [History] Citalopram Hydrobromide [Citalopram HBr] 10 mg PO DAILY 02/10/17 [History] Fluticasone Propionate Nasal [Flonase] 50 mcg NS DAILY 02/10/17 [History] Metoprolol [Lopressor] 50 mg PO DAILY 02/10/17 [History] Quetiapine Fumarate [Seroquel] 100 mg PO HS 02/10/17 [History] Simvastatin [Zocor] 40 mg PO HS 02/10/17 [History] Terbutaline [Brethine] 2.5 mg PO DAILY 02/10/17 [History] Tiotropium [place] [Spiriva Respimat] 2 puff IH DAILY 02/10/17 [History] cloNIDine HCl [Clonidine HCl] 0.3 mg PO DAILY 02/10/17 [History] clonazePAM [Klonopin] 1 mg PO DAILY 02/10/17 [History] Albuterol Sulfate [Albuterol Inhaler] 2 puff IH Q6HR PRN #1 hfa.aer.ad 02/13/17 [Rx] GuaiFENesin ER [Mucinex] 600 mg PO BID #15 tbbp.12hr 02/13/17 [Rx] Nicotine Patch [Nicoderm] 21 mg TD Q24H #30 patch.td24 02/13/17 [Rx] Albuterol Neb [AccuNeb] 1.25 mg IH AD 03/02/17 [History] Meloxicam [Meloxicam] 7.5 mg PO DAILY 03/02/17 [History] 3 Allergy/AdvReac Type Severity Reaction Status Date / Time No Known Allergies Allergy Verified 03/02/17 09:54 All Systems PM: A 10-system review of systems was performed and is negative for pertinent findings except as documented above in the HPI. - Constitutional Constitutional: no chills, no fever(s), no night sweats - EENT Eyes: no change in vision, no discharge, no pain, no photophobia Ears: no ear discharge, no ear pain, no tinnitus Nose, mouth and throat: no dysphagia, no nasal discharge, no neck pain, no sore throat - Cardiovascular Cardiovascular ROS IM: no chest pain, no diaphoresis, no dyspnea, no lightheadedness, no palpitations, no syncope - Respiratory Respiratory: cough, dyspnea, wheezing, excessive phlegm production, change in phlegm color - Gastrointestinal Gastrointestinal: no abdominal pain, no diarrhea, no hematemesis, no hematochezia, no melena, no nausea, no vomiting - Genitourinary Genitourinary: no change in urinary stream, no dysuria, no flank pain, no hematuria - Musculoskeletal Musculoskeletal ROS IM: no numbness, no tingling - Integumentary Integumentary IM: no rash, no unusual bruising - Neurological Neurological ROS: no confusion, no convulsions, no focal weakness, no numbness, no tingling, no tremor(s) - Hematologic/Lymphatic Hematologic/Lymphatic: no easy bruising - Constitutional Vitals: Temp Pulse Resp BP Pulse Ox 98.2 F 114 24 137/85 100 03/02/17 14:38 03/02/17 14:38 03/02/17 14:38 03/02/17 14:38 03/02/17 14:38 General appearance: Present: A&O X 3, morbidly obese, pleasant, answers questions appropriately - Head Head exam: Present: atraumatic, normocephalic - Eye Eye exam: Present: PERRL, conjuntiva pink, sclera anicteric Pupils: Present: PERRL - Neck Neck exam general surgery: Present: supple, trachea midline. Absent: lymphadenopathy - Respiratory Respiratory exam: Present: CTAB. Absent: accessory muscle use, rales, rhonchi, wheezes - Cardiovascular Cardiovascular exam: Present: RRR, +S1, +S2. Absent: diastolic murmur, gallop, rubs, systolic murmur - GI/Abdominal GI/Abdominal exam: Present: normal bowel sounds, soft, no peritoneal signs. Absent: distended, tenderness - Extremities Exam Extremities exam: Present: warm, radial pulses palpable and symmetrical. Absent : calf tenderness, cyanotic, pedal edema - Neurological Exam Neurological exam: Present: CN II-XII intact, oriented X3, no focal deficits. Absent: pronater drift, facial droop, speech deficit - Skin Skin exam: Present: dry, intact Internal Med - H&P Results - Labs CBC & Chem 7: 03/02/17 10:04 03/02/17 10:04
[2017-03-02] MEDS: Ipratropium/Albuterol Neb 3 ML IH SCH ×2 (16:08→20:24)
[2017-03-02] MEDS: MethylPREDNISolone 40 MG/ML VIAL IVP SCH (16:35)
[2017-03-02] MEDS: Nicotine 21 MG PATCH.TD24 TD SCH (16:36)
[2017-03-03] MEDS: Ipratropium/Albuterol Neb 3 ML IH SCH ×6 (00:04→20:22)
[2017-03-03] MEDS: MethylPREDNISolone 40 MG/ML VIAL IVP SCH ×3 (00:31→20:45)
[2017-03-03 04:12] LABS: Basophils % 0.1 %; Hematocrit 39.5 % (35.3-44.9); Hemoglobin 12.2 g/dL (11.5-15.4); Immature Granulocytes % 1.5 % (0-4); Lymphocytes # 0.6 K/mcL (0.6-4.6); Mean Corpuscular HGB Conc 30.9 g/dL (31.6-35.5); Mean Corpuscular Hemoglobin 29.7 pg (28.0-33.3); Mean Corpuscular Volume 96.1 fL (83.0-100.0); Monocytes # 0.1 K/mcL (0.0-1.3); Monocytes % 1.4 %; Neutrophils # 7.2 K/mcL (1.6-8.9); Platelet Count 210 K/mcL (140-400); Red Blood Count 4.11 M/mcL (3.82-4.97)
[2017-03-03 04:18] LABS: INR 1.2; Prothrombin Time 12.5 Seconds (9.4-12.1)
[2017-03-03 04:20] LABS: Activated Partial Thrombo Time 28.1 Seconds (26.0-36.0)
[2017-03-03 04:37] LABS: Alanine Aminotransferase 12 Units/L (7-52); Albumin 3.1 g/dL (3.5-5.7); Albumin/Globulin Ratio 0.9 (1.1-2.2); Alkaline Phosphatase 65 Units/L (34-104); Aspartate Amino Transferase 9 Units/L (13-39); BUN/Creatinine Ratio 20 (6-26); Bilirubin,Total 0.3 mg/dL (0.3-1.0); Blood Urea Nitrogen 19 mg/dL (6-20); Calcium 9.3 mg/dL (8.6-10.3); Carbon Dioxide 33 mEq/L (23-29); Chloride 104 mEq/L (98-107); Chol/HDL Ratio 4.1 (0-4.9); Cholesterol 163 mg/dL (< 200); Globulin 3.3 g/dL (2.4-3.5); Glucose 166 mg/dL (70-105); HDL Cholesterol 40 mg/dL (40-59); LDL Cholesterol,Calculated 108 mg/dL (0-99); Magnesium 2.1 mg/dL (1.6-2.6); Osmolality,Calculated 308 (280-300); Phosphorous 2.7 mg/dL (2.7-4.5); Potassium 3.9 mEq/L (3.5-5.1); Sodium 146 mEq/L (136-145); Total Protein 6.4 g/dL (6.4-8.9); Triglycerides 73 mg/dL (< 150); eGFR For African Americans > 60 (> 60); eGFR For Non-African Americans > 60 (> 60)
[2017-03-03] MEDS: clonazePAM 1 MG TABLET PO SCH (07:39)
[2017-03-03] MEDS: Aspirin 81 MG TAB.CHEW PO SCH (07:39)
[2017-03-03] MEDS: cloNIDine HCl 0.1 MG TABLET PO SCH (07:39)
[2017-03-03] MEDS: Levofloxacin 750 MG/150 ML 750 MG/150 ML BAG IVPB SCH (07:40)
--- NOTE | 2017-03-03 11:11 | Electrocardiograph Report ---
[address] [address] Test Date: 2017-03-02 Pat Name: Yariel Chatman Department: 102 Room: 2N07 Gender: F Cath Lab Manager: Cady : 1975 Requested By: Ramandeep See Order Number: [id number] Reading MD: Uzair Winkler MD Measurements Intervals [place] Rate: 89 P: 81 [place]: 158 QRS: 34 QRSD: 98 T: 52 QT: 383 QTc: 429 Interpretive Statements SINUS RHYTHM Electronically Signed On 03-03-2017 11:09:31 EST by Uzair Winkler MD
--- NOTE | 2017-03-03 20:32 | Internal Med Progress Note ---
Date of Encounter: 03/03/17 Time of Encounter: 12:00 - Assessment and plan (1) Acute respiratory failure with hypoxia Current Visit: No Status: Acute Assessment and plan: Supplemental oxygen by nasal cannula to maintain saturation above 92% (2) Tobacco dependence Current Visit: No Status: Acute Assessment and plan: I have provided smoking cessation counseling. She reports that she stop smoking after the previous admission about 2 weeks ago. I encouraged her to continue to refrain from using tobacco products. (3) Morbid obesity with BMI of 50.0-59.9, adult Current Visit: No Status: Acute Assessment and plan: Outpatient follow-up and weight loss regimen. (4) COPD exacerbation Current Visit: Yes Status: Acute Assessment and plan: I will increase IV steroids to 60 mg every 6 hours. Continue with inhaled bronchodilators. (5) DVT prophylaxis Current Visit: Yes Status: Acute Assessment and plan: Subcutaneous Lovenox. She is sedentary and with history of tobacco use she is a high risk for DVT. - Subjective Interval history: Patient presented to the hospital for evaluation of shortness of breath. Currently her shortness of breath is reportedly improved. History is limited by MRDD. - Constitutional Vitals: Temp Pulse Resp BP Pulse Ox 98.2 F 97 20 126/87 92 03/03/17 18:54 03/03/17 18:54 03/03/17 20:22 03/03/17 18:54 03/03/17 20:22 General appearance: Present: A&O X 2, morbidly obese, pleasant, answers questions appropriately - Respiratory Respiratory exam: Present: wheezes. Absent: accessory muscle use, rales, rhonchi - Cardiovascular Cardiovascular exam: Present: RRR, +S1, +S2. Absent: diastolic murmur, gallop, rubs, systolic murmur - GI/Abdominal GI/Abdominal exam: Present: normal bowel sounds, soft, no peritoneal signs. Absent: distended, tenderness - Extremities Exam Extremities exam: Present: warm, radial pulses palpable and symmetrical. Absent : calf tenderness, cyanotic, pedal edema - Skin Skin exam: Present: dry, intact Internal Medicine: Result - Labs CBC & Chem 7: 03/04/17 04:45 03/04/17 04:45 Labs: Short CBC 03/03/17 Range/Units 03:16 WBC 8.0 (4.3-11.1) K/mcL Hgb 12.2 (11.5-15.4) g/dL Hct 39.5 (35.3-44.9) % Plt Count 210 (140-400) K/mcL Neutrophils # 7.2 (1.6-8.9) K/mcL BMP 03/03/17 03:16 Sodium 146 H Potassium 3.9 Chloride 104 Carbon Dioxide 33 H BUN 19 Creatinine 0.97 Glucose 166 H Calcium 9.3 Cardiac Enzymes 03/02/17 03/03/17 Range/Units 22:02 03:16 Troponin I < 0.03 < 0.03 (< 0.04) ng/mL Liver Function 03/03/17 Range/Units 03:16 Total Bilirubin 0.3 (0.3-1.0) mg/dL AST 9 L (13-39) Units/L ALT 12 (7-52) Units/L Alkaline Phosphatase 65 (34-104) Units/L Albumin 3.1 L (3.5-5.7) g/dL - ABG Interpretation ABG results: ABG ABG pH 7.47 pH Units (7.32-7.45) H 03/02/17 10:44 ABG pCO2 42 mmHg (35-45) 03/02/17 10:44 ABG pO2 48 mmHg (85-104) L* 03/02/17 10:44 ABG O2 Saturation 85 % (95-98) L 03/02/17 10:44 PT/INR, D-dimer PT 12.5 Seconds (9.4-12.1) H 03/03/17 03:16 D-Dimer 587 ng/mLFEU (0-500) H 03/02/17 10:04 Consult Discharge Plan - Plan Referrals: Julia Atkins, ENTERPRISE ANALYST [Primary Care Provider] -
[2017-03-03] MEDS: Nicotine 21 MG PATCH.TD24 TD SCH (20:49)
[2017-03-03] MEDS: methylPREDNISolone 125 MG/2 ML VIAL IVP SCH ×2 (20:51→23:32)
[2017-03-04] MEDS: Ipratropium/Albuterol Neb 3 ML IH SCH ×6 (00:19→20:55)
[2017-03-04 05:09] LABS: BUN/Creatinine Ratio 25 (6-26); Blood Urea Nitrogen 28 mg/dL (6-20); Calcium 8.8 mg/dL (8.6-10.3); Carbon Dioxide 31 mEq/L (23-29); Chloride 106 mEq/L (98-107); Glucose 174 mg/dL (70-105); Osmolality,Calculated 302 (280-300); Potassium 4.4 mEq/L (3.5-5.1); Sodium 141 mEq/L (136-145); eGFR For African Americans > 60 (> 60); eGFR For Non-African Americans 53 (> 60)
[2017-03-04 05:11] LABS: Basophils % 0.2 %; Eosinophils % 0.1 %; Hematocrit 36.8 % (35.3-44.9); Immature Granulocytes % 2.2 % (0-4); Lymphocytes # 0.8 K/mcL (0.6-4.6); Lymphocytes % 6.6 %; Mean Corpuscular HGB Conc 29.9 g/dL (31.6-35.5); Mean Corpuscular Hemoglobin 29.2 pg (28.0-33.3); Mean Corpuscular Volume 97.6 fL (83.0-100.0); Monocytes # 0.2 K/mcL (0.0-1.3); Monocytes % 1.3 %; Neutrophils # 10.2 K/mcL (1.6-8.9); Platelet Count 211 K/mcL (140-400); Red Blood Count 3.77 M/mcL (3.82-4.97); Red Cell Distribution Width 14.1 % (11.5-14.5); Segmented Neutrophils % 89.6 %
[2017-03-04] MEDS: methylPREDNISolone 125 MG/2 ML VIAL IVP SCH ×3 (06:25→17:00)
[2017-03-04] MEDS: *HR* Enoxaparin 40 MG/0.4 ML SYRINGE SQ SCH (06:25)
[2017-03-04] MEDS: Aspirin 81 MG TAB.CHEW PO SCH (07:28)
[2017-03-04] MEDS: clonazePAM 1 MG TABLET PO SCH (07:28)
[2017-03-04] MEDS: cloNIDine HCl 0.1 MG TABLET PO SCH (07:28)
[2017-03-04] MEDS: Levofloxacin 750 MG/150 ML 750 MG/150 ML BAG IVPB SCH (07:29)
[2017-03-04] MEDS ORDERED: Mag Hydrox/Al Hydrox/Simeth 30 ML UDC PO PRN (09:13)
[2017-03-04] MEDS: Nicotine 21 MG PATCH.TD24 TD SCH (14:21)
[2017-03-04] MEDS ORDERED: Dextrose Gel 15 GM/37.5 ML TUBE PO PRN ×2 (15:16)
[2017-03-04] MEDS ORDERED: D5% in Water 1,000 ML IVC PRN (15:16)
[2017-03-04] MEDS ORDERED: *HR* Dextrose 50 % in Water (Syg) 50 ML SYRINGE IVP PRN (15:16)
[2017-03-04] MEDS: Insulin LISPRO 300 UNITS/3 ML VIAL SQ SCH (16:59)
--- NOTE | 2017-03-04 18:32 | Internal Med Progress Note ---
Date of Encounter: 03/04/17 Time of Encounter: 11:00 - Assessment and plan (1) Acute respiratory failure with hypoxia Current Visit: No Status: Acute Assessment and plan: Supplemental oxygen by nasal cannula to maintain saturation above 92%. Titrate oxygen requirements. We will (2) Tobacco dependence Current Visit: No Status: Acute Assessment and plan: I have provided smoking cessation counseling. She reports that she stop smoking after the previous admission about 2 weeks ago. I encouraged her to continue to refrain from using tobacco products. (3) Morbid obesity with BMI of 50.0-59.9, adult Current Visit: No Status: Acute Assessment and plan: Outpatient follow-up and weight loss regimen. (4) COPD exacerbation Current Visit: Yes Status: Acute Assessment and plan: Continue with IV steroids to 60 mg every 6 hours. Continue with inhaled bronchodilators. (5) DVT prophylaxis Current Visit: Yes Status: Acute Assessment and plan: Subcutaneous Lovenox. She is sedentary and with history of tobacco use she is a high risk for DVT. - Subjective Interval history: Patient presented to the hospital for evaluation of shortness of breath. Currently her shortness of breath is reportedly improved. History is limited by MRDD. Initially she was not high flow oxygen as high as 10 L/m. It was titrated down to 4 L. Currently she is on room air and her oxygen saturation maintained in the mid 90s. - Constitutional Vitals: Temp Pulse Resp BP Pulse Ox 99.5 F 103 18 135/85 100 03/04/17 16:14 03/04/17 16:14 03/04/17 17:12 03/04/17 16:14 03/04/17 17:12 General appearance: Present: A&O X 2, morbidly obese, pleasant, answers questions appropriately - Respiratory Respiratory exam: Present: CTAB (Minimal wheezing and minimally decreased breath sounds bilaterally). Absent: accessory muscle use, rales, rhonchi, wheezes - Cardiovascular Cardiovascular exam: Present: RRR, +S1, +S2. Absent: diastolic murmur, gallop, rubs, systolic murmur - GI/Abdominal GI/Abdominal exam: Present: normal bowel sounds, soft, no peritoneal signs. Absent: distended, tenderness - Extremities Exam Extremities exam: Present: warm, radial pulses palpable and symmetrical. Absent : calf tenderness, cyanotic, pedal edema - Skin Skin exam: Present: dry, intact Internal Medicine: Result - Labs CBC & Chem 7: 03/04/17 04:45 03/04/17 04:45 Labs: Short CBC 03/04/17 Range/Units 04:45 WBC 11.4 H (4.3-11.1) K/mcL Hgb 11.0 L (11.5-15.4) g/dL Hct 36.8 (35.3-44.9) % Plt Count 211 (140-400) K/mcL Neutrophils # 10.2 H (1.6-8.9) K/mcL BMP 03/04/17 04:45 Sodium 141 Potassium 4.4 Chloride 106 Carbon Dioxide 31 H BUN 28 H Creatinine 1.12 Glucose 174 H Calcium 8.8 - ABG Interpretation ABG results: ABG ABG pH 7.47 pH Units (7.32-7.45) H 03/02/17 10:44 ABG pCO2 42 mmHg (35-45) 03/02/17 10:44 ABG pO2 48 mmHg (85-104) L* 03/02/17 10:44 ABG O2 Saturation 85 % (95-98) L 03/02/17 10:44 PT/INR, D-dimer PT 12.5 Seconds (9.4-12.1) H 03/03/17 03:16 D-Dimer 587 ng/mLFEU (0-500) H 03/02/17 10:04 Consult Discharge Plan - Plan Referrals: Julia Atkins, FARM MANAGEMENT ADVISER [Primary Care Provider] -
[2017-03-04] MEDS ORDERED: Insulin LISPRO 300 UNITS/3 ML VIAL SQ SCH (21:00)
[2017-03-05] MEDS: methylPREDNISolone 125 MG/2 ML VIAL IVP SCH ×3 (00:11→11:50)
[2017-03-05] MEDS: Ipratropium/Albuterol Neb 3 ML IH SCH ×4 (00:17→11:48)
[2017-03-05] MEDS: *HR* Enoxaparin 40 MG/0.4 ML SYRINGE SQ SCH (04:32)
[2017-03-05 05:23] LABS: Basophils % 0.2 %; Hematocrit 39.3 % (35.3-44.9); Hemoglobin 11.8 g/dL (11.5-15.4); Immature Granulocytes % 2.7 % (0-4); Lymphocytes % 10.9 %; Mean Corpuscular Hemoglobin 29.1 pg (28.0-33.3); Mean Platelet Volume 12.1 fL (9.4-12.4); Monocytes # 0.3 K/mcL (0.0-1.3); Monocytes % 3.1 %; Neutrophils # 7.5 K/mcL (1.6-8.9); Platelet Count 205 K/mcL (140-400); Red Blood Count 4.05 M/mcL (3.82-4.97); Red Cell Distribution Width 14.3 % (11.5-14.5); Segmented Neutrophils % 83.1 %
[2017-03-05 05:36] LABS: BUN/Creatinine Ratio 32 (6-26); Blood Urea Nitrogen 33 mg/dL (6-20); Calcium 9.1 mg/dL (8.6-10.3); Carbon Dioxide 32 mEq/L (23-29); Chloride 106 mEq/L (98-107); Glucose 151 mg/dL (70-105); Magnesium 2.1 mg/dL (1.6-2.6); Osmolality,Calculated 306 (280-300); Potassium 4.5 mEq/L (3.5-5.1); Sodium 143 mEq/L (136-145); eGFR For African Americans > 60 (> 60); eGFR For Non-African Americans 59 (> 60)
[2017-03-05] MEDS: cloNIDine HCl 0.1 MG TABLET PO SCH (07:54)
[2017-03-05] MEDS: clonazePAM 1 MG TABLET PO SCH (07:54)
[2017-03-05] MEDS: Aspirin 81 MG TAB.CHEW PO SCH (07:54)
[2017-03-05] MEDS: Levofloxacin 750 MG/150 ML 750 MG/150 ML BAG IVPB SCH (07:55)
[2017-03-05] MEDS: Insulin LISPRO 300 UNITS/3 ML VIAL SQ SCH ×2 (07:59→11:49)
[2017-03-05 11:35] VITALS: BP 129/83
--- NOTE | 2017-03-05 12:03 | Discharge Summary ---
Date of Encounter: 03/05/17 Time of Encounter: 12:01 - Discharge Diagnosis (1) Acute respiratory failure with hypoxia Priority: Secondary Status: Acute (2) Tobacco dependence Priority: Secondary Status: Acute (3) Morbid obesity with BMI of 50.0-59.9, adult Priority: Secondary Status: Acute (4) COPD exacerbation Priority: Primary Status: Acute (5) Acute bronchitis Priority: Secondary Status: Acute Qualifiers: Bronchitis organism: unspecified organism Qualified Code(s): J20.9 - Acute bronchitis, unspecified (6) Benign essential HTN Priority: Secondary Status: Acute (7) Anxiety Priority: Secondary Status: Acute - Discharge Medications Prescriptions: Albuterol Neb [AccuNeb] 1.25 mg IH Q6H #90 inhsol levoFLOXacin [Levaquin] 750 mg PO DAILY #2 tablet predniSONE [PredniSONE] 10 mg PO DAILY #20 tablet Home Medications: Amitriptyline [Elavil] 25 mg PO HS 02/10/17 [History] Aspirin 81 mg PO DAILY 02/10/17 [History] Citalopram Hydrobromide [Citalopram HBr] 10 mg PO DAILY 02/10/17 [History] Fluticasone Propionate Nasal [Flonase] 50 mcg NS DAILY 02/10/17 [History] Metoprolol [Lopressor] 50 mg PO DAILY 02/10/17 [History] Quetiapine Fumarate [Seroquel] 100 mg PO HS 02/10/17 [History] Simvastatin [Zocor] 40 mg PO HS 02/10/17 [History] Terbutaline [Brethine] 2.5 mg PO DAILY 02/10/17 [History] Tiotropium [place] [Spiriva Respimat] 2 puff IH DAILY 02/10/17 [History] cloNIDine HCl [Clonidine HCl] 0.3 mg PO DAILY 02/10/17 [History] clonazePAM [Klonopin] 1 mg PO DAILY 02/10/17 [History] Albuterol Sulfate [Albuterol Inhaler] 2 puff IH Q6HR PRN #1 [id number] 02/13/17 [Rx] GuaiFENesin ER [Mucinex] 600 mg PO BID #15 tbbp.12hr 02/13/17 [Rx] Nicotine Patch [Nicoderm] 21 mg TD Q24H #30 patch.td24 02/13/17 [Rx] Meloxicam 7.5 mg PO DAILY 03/02/17 [History] Albuterol Neb [AccuNeb] 1.25 mg IH Q6H #90 inhsol 03/05/17 [Rx] levoFLOXacin [Levaquin] 750 mg PO DAILY #2 tablet 03/05/17 [Rx] predniSONE [PredniSONE] 10 mg PO DAILY #20 tablet 03/05/17 [Rx] Allergies/Adverse Reactions: 3 Allergy/AdvReac Type Severity Reaction Status Date / Time No Known Allergies Allergy Verified 03/02/17 09:54 Date of admission: 03/02/17 15:51 Primary care physician: Julia Atkins CNP Consults: 03/03/17 08:59 Consult to Invasive Line Access Team [CONS] Routine Reason for Consult: limited vascular access Line Type: EPIV Time Notified: 09:01 Call Completed: Yes 03/04/17 14:25 Consult to Occupational Therapy [CONS] Routine Comment: Evaluate, develop and implement POC Reason for Consult: activity intolerance Consult to Physical Therapy [CONS] Routine Comment: Evaluate, develop and implement POC Reason for Consult: activity intolerance - Patient Status Disposition: Home, Self-Care Condition: Fair Functional capacity at discharge: independent ambulation Overall status at discharge: patient is progressing back to baseline - Discharge Instructions Instructions: Albuterol (By breathing), Prednisone (By mouth), Levofloxacin ( By mouth) Follow Up With: Julia Atkins CNP [Primary Care Provider] - Additional Instructions: Follow-up with PCP within 1 week of discharge. Refrain from smoking cigarettes. Take prednisone as prescribed as an 8 day taper. - Diet and Activity Activity: increase activity as tolerated Diet: low salt diet Hospital course: Ms. Chatman is a 41 year old female with past medical history significant for COPD , morbid obesity, tobacco abuse and asthma who presented to the hospital for evaluation of shortness of breath. She was admitted for COPD exacerbation and treated with inhaled bronchodilators, IV steroids and BiPAP. She was found to have severe acute hypoxic respiratory failure secondary to COPD. She made a good gradual improvement. She also received antibiotics. Currently she is on room air. She will be prescribed a prednisone taper and discharged home. Due to her COPD the patient requires a hospital bed to maintain the head of the bed elevated which helps her with breathing. - Time Spent with Patient Total time spent providing and/or coordinating discharge services: - Constitutional Vitals: Temp Pulse Resp BP Pulse Ox 98.7 F 90 18 129/83 100 03/05/17 11:31 03/05/17 11:31 03/05/17 11:49 03/05/17 11:31 03/05/17 11:49 General appearance: Present: A&O X 2, morbidly obese, pleasant, answers questions appropriately - Respiratory Respiratory exam: Present: CTAB. Absent: accessory muscle use, rales, rhonchi, wheezes - Cardiovascular Cardiovascular exam: Present: RRR, +S1, +S2. Absent: diastolic murmur, gallop, rubs, systolic murmur
== END 2017-03-05 15:36 | disposition home or self-care (01) | DRG 140 ==
LOC: EMEROO 09:47 → 2NNU 09:47 → SUATTDRO 15:51
PROVIDERS: ADMIT Internal Medicine; ATTEND Internal Medicine